=== PATIENT | female | born 1970 | race Two or more races ===

== ENCOUNTER 2018-10-03 09:57 | Emergency (ER) | payer BC ==
[~2018-10-03] VITALS: Ht 165.1 cm; Wt 75.0 kg
[2018-10-03] MEDS ORDERED: ONDANSETRON HCL 4MG/2ML INJ IV STA (10:29)
[2018-10-03] MEDS ORDERED: SODIUM CHLORIDE 0.9% 1,000 ML IV ONE (10:29)
[2018-10-03] MEDS ORDERED: MORPHINE SULFATE 4 MG/ML CPJ (NOT FOR IM USE) IV STA (10:29)
[2018-10-03 10:48] LABS: HEMOGLOBIN. 13.6 g/dL (12.0-16.0); MEAN CORPUSCULAR VOLUME 83.6 fL (81.0-99.0); MEAN PLATELET VOLUME 8.1 fl (7.4-10.4); PLATELET 476 x1000/uL (130-400); RED BLOOD CELL COUNT 5.02 mill/uL (4.2-5.4); RED CELL DISTRIBUTION WIDTH 18.3 % (11.6-14.6)
[2018-10-03 10:53] LABS: PROTHROMBIN TIME 10.8 sec (9.6-11.0)
[2018-10-03 10:55] LABS: CHLORIDE 108 mEq/L (98-107)
[2018-10-03 11:03] LABS: HCG SCREEN NEGATIVE
[2018-10-03 11:11] LABS: PLATELET ESTIMATE INCREASED
[2018-10-03 12:26] VITALS: BP 125/76
[2018-10-03 12:40] LABS: CLARITY URINE CLEAR (CLEAR); COLOR URINE YELLOW (YELLOW); KETONES URINE 1+ (NEGATIVE); LEUKOCYTE ESTERASE URINE NEGATIVE (NEGATIVE); NITRITE URINE NEGATIVE (NEGATIVE); OCCULT BLOOD URINE NEGATIVE (NEGATIVE); PH URINE 8.5 (4.5-8.0); PROTEIN URINE TRACE (NEGATIVE); SPECIFIC GRAVITY URINE 1.016 (1.005-1.030); UROBILINOGEN URINE 0.2 E.U./dL (0.2-1.0)
== END 2018-10-03 12:51 | disposition home or self-care (01) ==
LOC: ER 10:19
DX: R10.13 Epigastric pain (principal); R11.2 Nausea with vomiting, unspecified; Z98.890 Other specified postprocedural states; Z88.0 Allergy status to penicillin
CPT/HCPCS: 36415; 80053; 81003; 83690; 84703; 85025; 85610; 96374; 96375; 99283; J2270; J2405; J7030; Z7610